=== PATIENT | female | born 1980 | race Hispanic/Latino ===

== ENCOUNTER 2018-01-29 19:15 | Emergency (ER) | payer SELFPAY ==
[2018-01-29 19:47] VITALS: BP 126/82; PULSE 90; RESP 18; TEMP 97.9; O2SAT 98
[2018-01-29] MEDS ORDERED: Dexamethasone 10 MG in Sodium Chloride 0.9% 50 ML IVP ONE (19:57)
[2018-01-29] MEDS ORDERED: Sodium Chloride 0.9% 1,000 ML IV STA (19:57)
[2018-01-29 20:16] LABS: BASO % 0.5 % (0.0-2.0); EOS # 0.2 K/uL (0.0-0.7); EOS % 2.9 % (0.0-4.0); HEMOGLOBIN 13.3 g/dL (12.0-16.0); LYMPH # 2.4 K/uL (1.0-4.3); LYMPH % 31.8 % (20.0-40.0); MEAN CELL VOLUME 86.6 fl (81.0-99.0); MEAN CORPUSCULAR HGB CONC 34.7 g/dL (33.0-37.0); MONO # 0.6 K/uL (0.0-0.8); MONO % 8.4 % (0.0-10.0); NEUT # 4.2 K/uL (1.8-7.0); NEUT % 56.4 % (50.0-75.0); NRBC % 0.2 % (0.0-0.0); RBC 4.44 Mil/uL (3.80-5.20); RED CELL DISTRIBUTION WIDTH 12.7 % (11.5-14.5); WHITE BLOOD COUNT 7.4 K/uL (4.8-10.8)
[2018-01-29 20:29] LABS: ALB/GLOB RATIO 1.3 (1.0-2.1); ALBUMIN 4.5 g/dL (3.5-5.0); ALT/SGPT 30 U/L (9-52); AST/SGOT 43 U/L (14-36); BLOOD UREA NITROGEN 16 mg/dl (7-17); CALCIUM 9.6 mg/dL (8.4-10.2); GFR AFRICAN-AMERICAN > 60; GFR NON-AFRICAN AMERICAN > 60
--- NOTE | 2018-01-29 20:42 | ED PDOC ---
HPI: CCC, URI, Sore Throat Time Seen by Provider: 01/29/18 19:49 Chief Complaint (Nursing): ENT Problem Chief Complaint (Provider): sore throat History Per: Patient History/Exam Limitations: no limitations Onset/Duration Of Symptoms: Days Associated Symptoms: Sore Throat. denies: Fever, Cough, Nasal Congestion Additional Complaint(s): 37 year old female presents to ED for an evaluation of sore throat. States for the past 2 weeks, she has sore throat without fever, cough or congestion. She was seen initially seen in the ED in [place] and they told her she has overactive thyroid but was not prescribed any medication. Reports her strep test was negative and there was no imagining test done. Denies throat swelling, shortness of breath, rash or abdominal pain. PMD: No Family Provider Past Medical History Reviewed: Historical Data, Nursing Documentation, Vital Signs Vital Signs: Last Vital Signs Temp 97.9 F 01/29/18 19:44 Pulse 90 01/29/18 19:44 Resp 18 01/29/18 19:44 BP 126/82 01/29/18 19:44 Pulse Ox 98 01/29/18 20:46 - Medical History PMH: No Chronic Diseases - Family History Family History: States: Unknown Family Hx - Social History Current smoker - smoking cessation education provided: No Alcohol: None Drugs: Denies - Home Medications Home Medications: Ambulatory Orders Medication Instructions Recorded Naproxen [Naprosyn] 500 mg PO BID PRN #10 tab 01/29/18 - Allergies Allergies/Adverse Reactions: Allergies Allergy/AdvReac Type Severity Reaction Status Date / Time No Known Allergies Allergy Verified 01/29/18 19:44 Review of Systems ROS Statement: Except As Marked, All Systems Reviewed And Found Negative Constitutional: Negative for: Fever ENT: Positive for: Throat Pain. Negative for: Nose Congestion, Throat Swelling Respiratory: Negative for: Cough, Shortness of Breath Gastrointestinal: Negative for: Abdominal Pain Physical Exam - Reviewed Nursing Documentation Reviewed: Yes Vital Signs Reviewed: Yes - Physical Exam Appears: Positive for: Well, Non-toxic, No Acute Distress Head Exam: Positive for: ATRAUMATIC, NORMAL INSPECTION, NORMOCEPHALIC Skin: Positive for: Normal Color, Warm, Dry Eye Exam: Positive for: Normal appearance ENT: Positive for: TM Is/Are (non erythematous and non bulging, able to swallow saliva no trismus or drooling), Other (positive tonsil lith). Negative for: Pharyngeal Erythema, Tonsillar Exudate, Tonsillar Swelling Neck: Positive for: Normal, Painless ROM, Supple. Negative for: Decreased ROM Cardiovascular/Chest: Positive for: Regular Rate, Rhythm. Negative for: Murmur Respiratory: Positive for: Normal Breath Sounds. Negative for: Respiratory Distress Gastrointestinal/Abdominal: Positive for: Normal Exam. Negative for: Tenderness , Organomegaly Back: Positive for: Normal Inspection. Negative for: L CVA Tenderness, R CVA Tenderness Extremity: Positive for: Normal ROM. Negative for: Tenderness, Pedal Edema, Deformity Neurologic/Psych: Positive for: Alert, Oriented (x3) - Laboratory Results Result Diagrams: 01/29/18 20:12 01/29/18 20:12 - ECG O2 Sat by Pulse Oximetry: 98 (RA) Pulse Ox Interpretation: Normal - Radiology X-Ray: Read By Radiologist (Neck soft tissue x-ray) X-Ray Interpretation: Other (negative; normal epiglottis) Medical Decision Making Medical Decision Making: Time: 2011 Initial Impression: sore throat Initial Plan: --CMP --Thyroid Stimulating Hormone --CBC w/ Differential --Decadron Inj 10mg --Normal Saline 1000mls/hr --IV Insertion --Neck Soft Tissue [RAD] --Sanders [Infectious Mononucleosis] --Rapid Strep Group A Antigen Scribe Attestation: Documented by Ibrahima Dinh, acting as a scribe for Shayne Larios PA-C. Provider Scribe Attestation: All medical record entries made by the Scribe were at my direction and personally dictated by me. I have reviewed the chart and agree that the record accurately reflects my personal performance of the history, physical exam, medical decision making, and the department course for this patient. I have also personally directed, reviewed, and agree with the discharge instructions and disposition. Disposition - Clinical Impression Clinical Impression: Tonsillith, Odynophagia - Patient ED Disposition Is Patient to be Admitted: No - Disposition Referrals: [facility] [Outside] Santiago Wallace MD [Staff Provider] - Disposition: Routine/Home Disposition Time: 22:00 Condition: IMPROVED Additional Instructions: YUNG HUNT, thank you for letting us take care of you today. Your provider was Elham Gaona MD and you were treated for SORE THROAT. The emergency medical care you received today was directed at your acute symptoms. If you were prescribed any medication, please fill it and take as directed. It may take several days for your symptoms to resolve. Return to the Emergency Department if your symptoms worsen, do not improve, or if you have any other problems. Please contact your doctor or call one of the physicians/clinics you have been referred to that are listed on the Patient Visit Information form that is included in your discharge packet. Bring any paperwork you were given at discharge with you along with any medications you are taking to your follow up visit. Our treatment cannot replace ongoing medical care by a primary care provider outside of the emergency department. Thank you for allowing the [facility] team to be part of your care today. If you had an X-Ray or CT scan: A Radiologist will review the ED reading if any change in treatment is needed we will contact you. If you had a blood, urine, or wound culture: It will take several days for the results, if any change in treatment is needed we will contact you. If you had an STI test: It will take 48 hours for the results. Please call after 1 week if you have not heard back. Prescriptions: Naproxen [Naprosyn] 500 mg PO BID PRN #10 tab PRN Reason: Pain Instructions: Sore Throat, Adult (DC) Forms: [facility] (Welsh) Print Language: BENINESE
--- NOTE | 2018-01-30 12:30 | RAD ---
Date of service: 01/29/2018 PROCEDURE: Soft tissue neck HISTORY: sore throat COMPARISON: Not available TECHNIQUE: AP and lateral radiographs of the cervical soft tissues. FINDINGS: The tracheal air column is midline in position. There is no radiopaque foreign body identified. The epiglottis is normal in width. There is no retropharyngeal soft tissue swelling. IMPRESSION: Normal examination.
== END 2018-01-29 22:20 | disposition home or self-care (01) ==
LOC: H.ER 19:15
DX: R13.10 Dysphagia, unspecified (principal); J35.8 Other chronic diseases of tonsils and adenoids
CPT/HCPCS: 70360; 80053; 81025; 84443; 85025; 86308; 87070; 87430; 96361; 96374; 96375; 99282; J1100; J1885; J7030